=== PATIENT | female | born 1945 | race Caucasian/White ===

== ENCOUNTER → 2021-04-02 10:31 | Outpatient (CLI) | payer OTHER, SELFPAY ==
[2021-04-02 19:10] LABS: Add Manual Diff / Slide Review NO; Basophils Absolute Auto 0 /uL (0-100); Basophils Percent Auto 0.5 % (0-2); Eosinophils Absolute Auto 100 /uL (0-450); Eosinophils Percent Auto 2.1 % (2-4); Hematocrit 34.6 % (36-46); Hemoglobin 11.5 g/dL (12.0-16.0); Lymphocytes Absolute Auto 1300 /uL (1100-4500); Lymphocytes Percent Auto 31.5 % (25-40); Mean Corpuscular HGB Conc 33.2 % (30-36); Mean Corpuscular Hemoglobin 31.9 PG (26-34); Mean Corpuscular Volume 96.1 fL (80-100); Monocytes Absolute Auto 300 /uL (0-900); Neutrophils Absolute Auto 2400 /uL (1500-7000); Neutrophils Percent Auto 57.9 % (50-75); Platelet Count 278 X10^3/uL (150-400); Red Cell Distribution Width 13.7 % (11.6-14.8); White Blood Cell Count 4.1 X10^3/uL (4.5-11.0)
[2021-04-02 19:29] LABS: Alanine Aminotransferase 22 IU/L (<35); Albumin Globulin Ratio 1.4 (1.0-2.8); Alkaline Phosphatase 66 U/L (38-126); Aspartate Aminotransferase 33 IU/L (14-36); BUN Creatinine Ratio 16.5 (6-22); Bilirubin Total 0.1 mg/dL (0.2-1.3); Blood Urea Nitrogen 14 mg/dL (7-17); Calcium 9.5 mg/dL (8.4-10.2); Carbon Dioxide 28 mmol/L (22-32); Chloride 104 mmol/L (98-107); Estimated Glomerular Filt Rate > 60.0 mL/min (>60); Globulin 2.8 g/dL (1.7-4.1); Glucose 89 mg/dL (80-110); HEMOLYSIS < 15 (0-50); Potassium 4.9 mmol/L (3.4-5.1); Sodium 136 mmol/L (137-145); Total Protein 6.8 g/dL (6.3-8.2)
[2021-04-02 19:40] LABS: Rheumatoid Factor < 8.6 IU/mL (<12.0)
[2021-04-02 21:08] LABS: Erythrocyte Sedimentation Rate 12 MM/HR (0-20)
== END ==
PROVIDERS: PCP Family Medicine; Visit Provider Family Medicine
DX: M06.9 Rheumatoid arthritis, unspecified (principal); E03.9 Hypothyroidism, unspecified; E78.00 Pure hypercholesterolemia, unspecified; E78.2 Mixed hyperlipidemia; G40.802 Other epilepsy, not intractable, without status epilepticus; N28.9 Disorder of kidney and ureter, unspecified
CPT/HCPCS: 80053; 84443; 85025; 85651; 86430

== ENCOUNTER → 2021-04-10 11:47 | Outpatient (CLI) | payer OTHER, SELFPAY ==
[2021-04-10 19:43] LABS: Add Manual Diff / Slide Review NO; Basophils Absolute Auto 0 /uL (0-100); Basophils Percent Auto 0.7 % (0-2); Eosinophils Absolute Auto 100 /uL (0-450); Eosinophils Percent Auto 1.8 % (2-4); Hematocrit 34.8 % (36-46); Hemoglobin 11.7 g/dL (12.0-16.0); Lymphocytes Absolute Auto 1300 /uL (1100-4500); Lymphocytes Percent Auto 28.6 % (25-40); Mean Corpuscular HGB Conc 33.6 % (30-36); Mean Corpuscular Hemoglobin 31.9 PG (26-34); Monocytes Absolute Auto 400 /uL (0-900); Monocytes Percent Auto 9.3 % (3-14); Neutrophils Absolute Auto 2700 /uL (1500-7000); Neutrophils Percent Auto 59.6 % (50-75); Platelet Count 288 X10^3/uL (150-400); Red Blood Cell Count 3.66 X10^6/uL (4.0-5.2); Red Cell Distribution Width 13.4 % (11.6-14.8); White Blood Cell Count 4.6 X10^3/uL (4.5-11.0)
[2021-04-10 19:51] LABS: HEMOLYSIS < 15 (0-50); Iron 88 ug/dL (37-170)
[2021-04-10 19:53] LABS: Cholesterol 249 mg/dL (140-199); HDL Cholesterol 104 mg/dL (40-60); LDL Cholesterol Calculated 128 mg/dL (<100); Triglycerides 86 mg/dL (35-150)
[2021-04-10 20:03] LABS: Percent Iron Saturation 37 % (15-50); Total Iron Binding Capacity 235 ug/dL (265-497); Transferrin 214 mg/dL (206-381)
[2021-04-10 20:14] LABS: Free T4, Direct Thyroxine 1.32 ng/dL (0.78-2.19)
[2021-04-10 20:32] LABS: Ferritin 67 ng/mL (11-264)
[2021-04-10 20:46] LABS: Vitamin B12 Reflex MMA if <400 562 pg/mL (239-931)
== END ==
PROVIDERS: Family Medicine; PCP Family Medicine; Visit Provider Family Medicine
DX: D64.9 Anemia, unspecified (principal); E03.9 Hypothyroidism, unspecified; E78.2 Mixed hyperlipidemia
CPT/HCPCS: 80061; 82607; 82728; 83540; 83550; 84439; 84443; 85025

== ENCOUNTER → 2021-05-05 13:09 | Outpatient (CLI) | payer OTHER, SELFPAY ==
--- NOTE | 2021-05-05 13:14 | DI.MRI.S_ITS ---
PROCEDURE: MR LUMBAR SPINE WO CON INDICATIONS: spondylosis of lumbar spine with radiculopathy TECHNIQUE: Noncontrast sagittal T1 spin echo and T2 fast echo, sagittal STIR, axial T1 and T2 fast spin echo through the lumbar spine. In cases with scoliosis, additional coronal T2 fast spin echo may be performed. COMPARISON: None. FINDINGS: Image quality: Excellent. Alignment and Curvature: There is dextroscoliosis of the lumbar spine with a Luz angle of 16 degrees. Bone Marrow: Marrow is of normal overall signal. No acute vertebral body compression fractures. L4 has a Schmorl's node anteriorly. Degenerative endplate changes are noted at the superior endplate of L3, L4, and L5. Anterior osteophytes and disc osteophytes are seen at these levels as well. Spinal Cord: Conus medullaris terminates at the L1 level. Visualized cord demonstrates normal signal and size. Paraspinous Soft Tissues: No paravertebral masses. T11-12: Diffuse disc bulge with no significant foraminal or central canal stenosis. T12-L1: Normal appearance. L1-L2: Diffuse disc bulge with no significant foraminal or central canal stenosis. L2-L3: A diffuse disc bulge with disc osteophytes and facet arthrosis causes moderate bilateral foraminal stenosis and mild central canal stenosis. L3-L4: A diffuse disc bulge with disc osteophytes and facet arthrosis causes minimal right and moderate left foraminal stenosis. The central canal has mild stenosis. The lateral recess on the left is narrowed. L4-L5: A diffuse disc bulge with disc osteophytes and facet arthrosis causes moderate bilateral foraminal stenosis. The central canal has mild stenosis. L5-S1: A diffuse disc bulge and facet arthrosis causes severe right foraminal stenosis. The left foramen has mild stenosis. IMPRESSION: 1. Lumbar spondylosis as above causing multilevel foraminal and central canal stenosis as above, most severe in the right L5-S1 foramina. 2. No acute vertebral body compression fracture. 3. Dextroscoliosis. Dictated by: Kraig Mosqueda M.D. on 05/06/2021 at 8:52 Approved by: Kraig Mosqueda M.D. on 05/06/2021 at 9:00
== END ==
PROVIDERS: PCP Family Medicine; Referring Provider Family Medicine; Visit Provider Family Medicine
DX: M54.16 Radiculopathy, lumbar region (principal); M47.816 Spondylosis without myelopathy or radiculopathy, lumbar region
CPT/HCPCS: 72148

== ENCOUNTER → 2021-05-14 12:19 | Outpatient (CLI) | payer OTHER, SELFPAY ==
[2021-05-14 19:03] LABS: Reticulocyte Count, Percent 0.8 % (1.06-2.63)
== END ==
PROVIDERS: PCP Family Medicine; Visit Provider Family Medicine
DX: D64.9 Anemia, unspecified (principal); E03.9 Hypothyroidism, unspecified
CPT/HCPCS: 85045

== ENCOUNTER → 2021-06-09 10:57 | Outpatient (CLI) | payer OTHER, SELFPAY ==
--- NOTE | 2021-06-09 10:58 | DI.MRI.S_ITS ---
PROCEDURE: MR HIPS BRYAN WO CON INDICATIONS: progressive bilateral hip pain with increasing impairment w TECHNIQUE: Noncontrast coronal T1 spin echo and STIR through the bony pelvis. Coronal and axial T2 fast spin echo with fat saturation, sagittal T1 spin echo, and oblique axial T2 fast spin echo with fat saturation through the hip. COMPARISON: [facility] ([facility]), CR, XR HIP W PEL IF DONE LT 2V, 03/14/2021, 12:39. FINDINGS: Image quality: Excellent. Bones and joints: Moderate to severe bilateral hip joint osteoarthritic changes are seen with near complete loss of joint space, extensive subchondral sclerosis and cyst formation and prominent marginal osteophyte formation. Small to moderate bilateral hip joint effusion is also noted. No definite intra-articular loose body is identified. No intraosseous lesions or fractures. No avascular necrosis of the left femoral head. Geographic area of signal abnormality and subtle deformity involving medial portion of right femoral head weight-bearing portion concerning for developing avascular necrosis in this region. Degenerative disc disease in visualized lower lumbar spine is seen with mild rightward scoliosis of lumbar spine partially visualized on this study. No acute compression fracture. Tendons and ligaments: Mild bilateral gluteus medius and minimus tendinosis near the level greater trochanters are seen, without associated muscle atrophy. The nearby proximal iliotibial band also appears intact. The iliopsoas tendon appears intact, without adjacent bursal fluid collections or evidence for impingement syndrome. The origin of the hamstring tendon is intact at the ischial tuberosity, as well as the associated sacrotuberous ligament. The straight and reflected heads of the rectus femoris muscle origin appear intact, as well as the conjoint tendon. The ligamentum teres appears intact where visualized. Labrum and cartilage: There is complete loss of articulating cartilages in bilateral femoral heads. Suggestion of extensive bilateral hip labral tear is seen with prominent complex appearing perilabral cyst anterior to right hip measures 1.4 x 1.4 x 2.5 cm in size. Soft tissues: Visualized muscles demonstrate normal bulk and internal signal. Quadratus femoris muscle demonstrates no internal edema to suggest ischiofemoral impingement. The proximal sciatic neurovascular bundle appears normal adjacent to the hamstring tendons. No free pelvic fluid. Bladder wall thickness is normal. Genitourinary structures and bowel loops appear normal where visualized. IMPRESSION: 1. Moderate to severe bilateral hip joint osteoarthritis. No fracture or dislocation. Deformity and geographic area of signal abnormality involving medial portion of right femoral head weight-bearing portion concerning for early developing avascular necrosis. No evidence of avascular necrosis of left femoral head. 2. Mild bilateral gluteus medius and minimus tendinosis near greater trochanters. No other muscle or tendon signal abnormality. Moderate bilateral hip joint effusion, no definite intra-articular loose body. 3. Suggestion of extensive bilateral hip labral tear with right-sided perilabral cyst as above. 4. Mild scoliosis and degenerative disc disease in visualized lower lumbar spine as above. No acute compression fracture. Dictated by: Sami Patino M.D. on 06/10/2021 at 9:05 Approved by: Sami Patino M.D. on 06/10/2021 at 9:12
== END ==
PROVIDERS: PCP Naturopath; Referring Provider Family Medicine; Visit Provider Family Medicine
DX: M25.551 Pain in right hip (principal); M25.552 Pain in left hip; M16.0 Bilateral primary osteoarthritis of hip; M25.452 Effusion, left hip; M25.451 Effusion, right hip; M41.9 Scoliosis, unspecified; M51.36 Other intervertebral disc degeneration, lumbar region
CPT/HCPCS: 73721

== ENCOUNTER → 2021-09-13 11:02 | Outpatient (CLI) | payer OTHER, SELFPAY ==
[2021-09-13 19:21] LABS: BUN Creatinine Ratio 24.7 (6-22); Blood Urea Nitrogen 18 mg/dL (7-17); Carbon Dioxide 27 mmol/L (22-32); Chloride 103 mmol/L (98-107); Estimated Glomerular Filt Rate > 60.0 mL/min (>60); Glucose 81 mg/dL (80-110); HEMOLYSIS < 15 (0-50); Potassium 4.3 mmol/L (3.4-5.1); Sodium 138 mmol/L (137-145)
== END ==
PROVIDERS: PCP Family Medicine; Referring Provider Family Medicine; Visit Provider Family Medicine
DX: R79.89 Other specified abnormal findings of blood chemistry (principal)
CPT/HCPCS: 80048

== ENCOUNTER → 2022-01-10 08:54 | Outpatient (CLI) | payer OTHER, SELFPAY ==
[2022-01-10 20:19] LABS: COVID19 - ORCAS (NP or Nasal) Negative (Negative)
== END ==
PROVIDERS: PCP Family Medicine; Visit Provider Family Medicine
DX: Z20.822 Contact with and (suspected) exposure to COVID-19 (principal)
CPT/HCPCS: C9803; U0003

== ENCOUNTER → 2022-02-17 08:51 | Outpatient (CLI) | payer OTHER, SELFPAY ==
[2022-02-17 19:07] LABS: Alanine Aminotransferase 16 IU/L (<35); Albumin Globulin Ratio 1.5 (1.0-2.8); Alkaline Phosphatase 75 U/L (38-126); Aspartate Aminotransferase 28 IU/L (14-36); BUN Creatinine Ratio 20.8 (6-22); Bilirubin Total 0.5 mg/dL (0.2-1.3); Blood Urea Nitrogen 16 mg/dL (7-17); Calcium 9.6 mg/dL (8.4-10.2); Carbon Dioxide 29 mmol/L (22-32); Chloride 104 mmol/L (98-107); Cholesterol 164 mg/dL (140-199); Estimated Glomerular Filt Rate > 60.0 mL/min (>60); Globulin 2.7 g/dL (1.7-4.1); Glucose 89 mg/dL (80-110); HDL Cholesterol 82 mg/dL (40-60); HEMOLYSIS < 15 (0-50); LDL Cholesterol Calculated 69 mg/dL (<100); Potassium 4.6 mmol/L (3.4-5.1); Sodium 136 mmol/L (137-145); Total Protein 6.7 g/dL (6.3-8.2); Triglycerides 67 mg/dL (35-150)
[2022-02-17 19:21] LABS: Free T4, Direct Thyroxine 1.67 ng/dL (0.78-2.19)
[2022-02-17 19:36] LABS: Thyroid Stimulating Hormone 1.95 uIU/mL (0.47-4.68)
== END ==
PROVIDERS: PCP Family Medicine; Visit Provider Family Medicine
DX: E78.5 Hyperlipidemia, unspecified (principal); M25.551 Pain in right hip; M25.552 Pain in left hip; E78.2 Mixed hyperlipidemia; E03.9 Hypothyroidism, unspecified
CPT/HCPCS: 80053; 80061; 84439; 84443

== ENCOUNTER → 2022-02-25 09:30 | Outpatient (CLI) | payer OTHER, SELFPAY ==
[2022-02-25 18:59] LABS: Add Manual Diff / Slide Review NO; Basophils Absolute Auto 0 /uL (0-100); Basophils Percent Auto 0.6 % (0-2); Eosinophils Absolute Auto 100 /uL (0-450); Eosinophils Percent Auto 2.1 % (2-4); Hematocrit 33.7 % (36-46); Hemoglobin 11.2 g/dL (12.0-16.0); Lymphocytes Absolute Auto 1100 /uL (1100-4500); Lymphocytes Percent Auto 25.4 % (25-40); Mean Corpuscular HGB Conc 33.2 % (30-36); Mean Corpuscular Hemoglobin 31.3 PG (26-34); Mean Corpuscular Volume 94.4 fL (80-100); Monocytes Absolute Auto 400 /uL (0-900); Monocytes Percent Auto 8.1 % (3-14); Neutrophils Absolute Auto 2900 /uL (1500-7000); Neutrophils Percent Auto 63.8 % (50-75); Platelet Count 316 X10^3/uL (150-400); Red Blood Cell Count 3.57 X10^6/uL (4.0-5.2); Red Cell Distribution Width 13.2 % (11.6-14.8); White Blood Cell Count 4.5 X10^3/uL (4.5-11.0)
[2022-02-25 19:10] LABS: HEMOLYSIS < 15 (0-50); Iron 93 ug/dL (37-170)
[2022-02-25 19:20] LABS: Percent Iron Saturation 33 % (15-50); Total Iron Binding Capacity 284 ug/dL (265-497); Transferrin 226 mg/dL (206-381)
== END ==
PROVIDERS: PCP Family Medicine; Visit Provider Family Medicine
DX: D64.9 Anemia, unspecified (principal)
CPT/HCPCS: 83540; 83550; 85025

== ENCOUNTER → 2022-04-30 11:59 | Outpatient (CLI) | payer OTHER, SELFPAY ==
[2022-04-30 19:56] LABS: Add Manual Diff / Slide Review NO; Basophils Absolute Auto 0 /uL (0-100); Basophils Percent Auto 0.8 % (0-2); Eosinophils Absolute Auto 100 /uL (0-450); Eosinophils Percent Auto 1.7 % (2-4); Hematocrit 33.3 % (36-46); Hemoglobin 11.4 g/dL (12.0-16.0); Lymphocytes Absolute Auto 1300 /uL (1100-4500); Lymphocytes Percent Auto 29.4 % (25-40); Mean Corpuscular HGB Conc 34.4 % (30-36); Mean Corpuscular Hemoglobin 31.4 PG (26-34); Mean Corpuscular Volume 91.4 fL (80-100); Monocytes Absolute Auto 400 /uL (0-900); Monocytes Percent Auto 8.4 % (3-14); Neutrophils Absolute Auto 2600 /uL (1500-7000); Neutrophils Percent Auto 59.7 % (50-75); Platelet Count 280 X10^3/uL (150-400); Red Blood Cell Count 3.64 X10^6/uL (4.0-5.2); Red Cell Distribution Width 14.2 % (11.6-14.8); White Blood Cell Count 4.4 X10^3/uL (4.5-11.0)
[2022-04-30 19:57] LABS: HEMOLYSIS < 15 (0-50); Iron 91 ug/dL (37-170)
[2022-04-30 20:07] LABS: Percent Iron Saturation 35 % (15-50); Total Iron Binding Capacity 261 ug/dL (265-497); Transferrin 203 mg/dL (206-381)
[2022-04-30 20:45] LABS: Vitamin B12 > 1000 pg/mL (239-931)
== END ==
PROVIDERS: PCP Family Medicine; Visit Provider Family Medicine
DX: D64.9 Anemia, unspecified (principal)
CPT/HCPCS: 82607; 83540; 83550; 85025

== ENCOUNTER → 2022-05-05 10:36 | Outpatient (CLI) | payer OTHER, SELFPAY ==
[2022-05-06 07:12] LABS: Fecal Immunochemical Test Negative (Negative)
== END ==
PROVIDERS: PCP Family Medicine; Visit Provider Family Medicine
DX: D64.9 Anemia, unspecified (principal)
CPT/HCPCS: 82274

== ENCOUNTER → 2022-05-13 10:16 | Outpatient (CLI) | payer OTHER, SELFPAY ==
[2022-05-13 20:21] LABS: TSH w/ Reflex to FT4 2.12 uIU/mL (0.47-4.68)
== END ==
PROVIDERS: PCP Family Medicine; Visit Provider Family Medicine
DX: E03.9 Hypothyroidism, unspecified (principal)
CPT/HCPCS: 84443

== ENCOUNTER → 2022-06-05 07:12 | Outpatient (CLI) | payer OTHER, SELFPAY ==
[2022-06-05 20:11] LABS: COVID19 - ORCAS (NP or Nasal) Negative (Negative)
== END ==
PROVIDERS: PCP Family Medicine; Visit Provider Physician Assistant
DX: Z20.822 Contact with and (suspected) exposure to COVID-19 (principal)
CPT/HCPCS: C9803; U0003

== ENCOUNTER → 2022-09-05 13:13 | Outpatient (CLI) | payer OTHER, SELFPAY ==
--- NOTE | 2022-09-05 13:14 | DI.MRI.S_ITS ---
PROCEDURE: MR KNEE LT WO CON INDICATIONS: fell on to left knee. unstable. TECHNIQUE: Noncontrast sagittal PD fast spin echo and T2 fast spin echo with fat saturation, sagittal 3-D FLASH with fat saturation; coronal T1 spin echo and PD fast spin echo with fat saturation, and axial PD fast spin echo with fat saturation through the knee. COMPARISON: [facility] ([facility]), CR, XR KNEE LT 3V, 09/01/2022, 15:12. FINDINGS: Image quality: Excellent. Menisci: There is suggestion of oblique tear involving posterior horn of medial meniscus extending to inferior articulating surface. No lateral meniscal tear. The meniscal root ligaments appear intact. Cruciate ligaments: The anterior and posterior cruciate ligaments appear intact. Medial structures: The medial collateral ligament appears intact. The posterior oblique ligament, semimembranosus tendon insertions, oblique popliteal ligament, and meniscocapsular junction appear intact. Visualized portions of the pes anserinus tendons appear normal. No abnormal bursal fluid. Lateral structures: The lateral collateral ligament, long and short heads of the biceps femoris tendon appear intact. The popliteus tendon appears normal; the popliteofibular ligament appears intact. Iliotibial band appears normal. Anterior structures: Significant soft tissue edema and swelling along anterior aspect of patella and patella tendon is seen. Distal quadriceps tendon is intact. Markedly thickened proximal patellar tendon at its inferior patellar insertion is seen extending to midportion of patellar tendon. Patellar alignment is normal. No femoral trochlear dysplasia or ventral trochlear prominence. No edema in the infrapatellar fat pad. Bones and cartilage: Patient's known nondisplaced fracture involving inferior portion of patella is seen with significant marrow edema. There is mild marrow edema involving anterior portion of proximal tibia without discrete fracture line. Mild to moderate tricompartmental osteoarthritis and chondromalacia is noted. Joint space: There is small to moderate knee joint fluid. No Hunt's cyst. Normal appearing synovial plicae are incidentally noted. IMPRESSION: 1. Nondisplaced fracture involving inferior portion of patella. Bony contusion involving adjacent anterior aspect of proximal tibia. No other fracture or dislocation. 2. Soft tissue swelling and edema along anterior aspect of patella and patella tendon with tendinosis and low-grade partial-thickness tear involving proximal to midportion of patellar tendon. Quadriceps tendon is intact. 3. Subtle oblique tear involving posterior horn of medial meniscus extending to inferior articulating surface. Lateral meniscus is intact. 4. Cruciate ligaments are intact. 5. Mild to moderate tricompartmental osteoarthritis and chondromalacia more prominent in medial femoral tibial compartment. Small to moderate amount of joint fluid, no gross loose bodies. Dictated by: Sami Patino M.D. on 09/05/2022 at 14:32 Approved by: Sami Patino M.D. on 09/05/2022 at 14:36
== END ==
PROVIDERS: PCP Family Medicine; Referring Provider Family Medicine; Visit Provider Physician Assistant
DX: S82.092A Other fracture of left patella, initial encounter for closed fracture (principal); S76.812A Strain of other specified muscles, fascia and tendons at thigh level, left thigh, initial encounter; S83.242A Other tear of medial meniscus, current injury, left knee, initial encounter; M17.12 Unilateral primary osteoarthritis, left knee; M25.362 Other instability, left knee; M94.262 Chondromalacia, left knee; M79.89 Other specified soft tissue disorders; W19.XXXA Unspecified fall, initial encounter
CPT/HCPCS: 73721

== ENCOUNTER → 2022-11-05 11:00 | Outpatient (CLI) | payer OTHER, SELFPAY ==
[2022-11-05 19:54] LABS: Cholesterol 162 mg/dL (140-199); HDL Cholesterol 95 mg/dL (40-60); LDL Cholesterol Calculated 60 mg/dL (<100); Triglycerides 37 mg/dL (35-150)
[2022-11-05 19:59] LABS: HEMOLYSIS < 15 (0-50); Iron 83 ug/dL (37-170)
[2022-11-05 20:32] LABS: Percent Iron Saturation 32 % (15-50); Total Iron Binding Capacity 263 ug/dL (265-497); Transferrin 229 mg/dL (206-381)
[2022-11-05 20:34] LABS: Free T4, Direct Thyroxine 1.56 ng/dL (0.78-2.19)
[2022-11-05 20:47] LABS: Thyroid Stimulating Hormone 1.96 uIU/mL (0.47-4.68)
[2022-11-05 22:52] LABS: Alanine Aminotransferase 24 IU/L (<35); Albumin 3.9 g/dL (3.5-5.0); Albumin Globulin Ratio 1.4 (1.0-2.8); Alkaline Phosphatase 78 U/L (38-126); Aspartate Aminotransferase 31 IU/L (14-36); BUN Creatinine Ratio 21.6 (6-22); Bilirubin Total 0.4 mg/dL (0.2-1.3); Blood Urea Nitrogen 16 mg/dL (7-17); Calcium 8.7 mg/dL (8.4-10.2); Carbon Dioxide 25 mmol/L (22-32); Chloride 103 mmol/L (98-107); Estimated Glomerular Filt Rate > 60 mL/min (>60); Globulin 2.7 g/dL (1.7-4.1); Glucose 82 mg/dL (80-110); HEMOLYSIS < 15 (0-50); Potassium 4.7 mmol/L (3.4-5.1); Sodium 137 mmol/L (137-145); Total Protein 6.6 g/dL (6.3-8.2)
[2022-11-05 23:24] LABS: Ferritin 53 ng/mL (11-264)
[2022-11-05 23:39] LABS: Vitamin B12 > 1000 pg/mL (239-931)
== END ==
PROVIDERS: PCP Family Medicine
DX: E78.5 Hyperlipidemia, unspecified (principal); D64.9 Anemia, unspecified; E03.9 Hypothyroidism, unspecified; M16.9 Osteoarthritis of hip, unspecified
CPT/HCPCS: 80053; 80061; 82607; 82728; 83540; 83550; 84439; 84443

== ENCOUNTER → 2023-01-03 10:34 | Outpatient (CLI) | payer OTHER, SELFPAY ==
--- NOTE | 2023-01-03 | DI.MG.S_ITS ---
BILATERAL DIGITAL SCREENING MAMMOGRAM 3D/2D WITH CAD: 01/03/2023 CLINICAL: Routine screening. Comparison is made to exams dated: 11/12/2021 mammogram, 10/16/2020 mammogram, 09/06/2019 mammogram, and 09/01/2018 mammogram - Outside facility. Both breasts are heterogeneously dense, which may obscure small masses (category c / 51-75% glandular tissue). Current study was also evaluated with a Computer Aided Detection (CAD) system. No significant masses, calcifications, or other findings are seen in either breast. There has been no significant interval change. IMPRESSION: NEGATIVE There is no mammographic evidence of malignancy. A 1 year screening mammogram is recommended. Based on the Tyrer Cuzick model (a risk assessment model) the patient's lifetime risk is 4.6% and her 10 year risk is 0.0%. According to the ACR, ACS, and NCCN guidelines, an annual breast MRI exam along with mammogram is recommended if the patient's lifetime risk is 20% or greater. This exam was interpreted at Station ID: [id number]. NOTE: For mammograms, a report in lay terms will be sent to the patient. Approximately 15% of breast malignancies will not be visualized mammographically. In the management of a palpable breast mass, a negative mammogram must not discourage biopsy of a clinically suspicious lesion. Electronically Signed By: Anh medina/gonzalo:01/05/2023 13:19:04 letter sent: Normal Exam ACR BI-RADS Category 1: Negative 3341F
== END ==
PROVIDERS: PCP Family Medicine; Referring Provider Family Medicine; Visit Provider Family Medicine
DX: Z12.31 Encounter for screening mammogram for malignant neoplasm of breast (principal)
CPT/HCPCS: 77063; 77067

== ENCOUNTER → 2023-03-09 10:24 | Outpatient (CLI) | payer OTHER, SELFPAY ==
[2023-03-09 20:07] LABS: HEMOLYSIS < 15 (0-50); Iron 128 ug/dL (37-170)
[2023-03-09 20:16] LABS: Percent Iron Saturation 50 % (15-50); Total Iron Binding Capacity 255 ug/dL (265-497); Transferrin 209 mg/dL (206-381)
[2023-03-09 20:40] LABS: Ferritin 58 ng/mL (11-264)
[2023-03-09 20:54] LABS: Vitamin B12 919 pg/mL (239-931)
== END ==
PROVIDERS: PCP Family Medicine; Visit Provider Family Medicine
DX: D64.9 Anemia, unspecified (principal)
CPT/HCPCS: 82607; 82728; 83540; 83550

== ENCOUNTER → 2023-03-23 09:54 | Outpatient (CLI) | payer OTHER, SELFPAY ==
[2023-03-23 20:20] LABS: Add Manual Diff / Slide Review NO; Basophils Absolute Auto 0 /uL (0-100); Basophils Percent Auto 0.6 % (0-2); Eosinophils Absolute Auto 100 /uL (0-450); Eosinophils Percent Auto 2.5 % (2-4); Hematocrit 37.1 % (36-46); Hemoglobin 12.7 g/dL (12.0-16.0); Lymphocytes Absolute Auto 1300 /uL (1100-4500); Mean Corpuscular HGB Conc 34.1 % (30-36); Mean Corpuscular Hemoglobin 32.2 PG (26-34); Mean Corpuscular Volume 94.4 fL (80-100); Monocytes Absolute Auto 400 /uL (0-900); Monocytes Percent Auto 9.1 % (3-14); Neutrophils Absolute Auto 2600 /uL (1500-7000); Neutrophils Percent Auto 58.8 % (50-75); Platelet Count 266 X10^3/uL (150-400); Red Blood Cell Count 3.93 X10^6/uL (4.0-5.2); White Blood Cell Count 4.4 X10^3/uL (4.5-11.0)
[2023-03-23 20:33] LABS: Alanine Aminotransferase 24 IU/L (<35); Albumin 4.1 g/dL (3.5-5.0); Albumin Globulin Ratio 1.6 (1.0-2.8); Alkaline Phosphatase 64 U/L (38-126); Aspartate Aminotransferase 31 IU/L (14-36); Bilirubin Total 0.5 mg/dL (0.2-1.3); Blood Urea Nitrogen 18 mg/dL (7-17); Calcium 8.9 mg/dL (8.4-10.2); Carbon Dioxide 27 mmol/L (22-32); Chloride 104 mmol/L (98-107); Cholesterol 165 mg/dL (140-199); Estimated Glomerular Filt Rate > 60 mL/min (>60); Globulin 2.6 g/dL (1.7-4.1); Glucose 85 mg/dL (80-110); HDL Cholesterol 96 mg/dL (40-60); HEMOLYSIS < 15 (0-50); LDL Cholesterol Calculated 58 mg/dL (<100); Potassium 4.4 mmol/L (3.4-5.1); Sodium 135 mmol/L (137-145); Total Protein 6.7 g/dL (6.3-8.2); Triglycerides 54 mg/dL (35-150)
[2023-03-23 20:53] LABS: TSH w/ Reflex to FT4 1.43 uIU/mL (0.47-4.68)
== END ==
PROVIDERS: PCP Family Medicine; Visit Provider Family Medicine
DX: D64.9 Anemia, unspecified (principal); E03.9 Hypothyroidism, unspecified; E78.2 Mixed hyperlipidemia
CPT/HCPCS: 80053; 80061; 84443; 85025

== ENCOUNTER 2023-05-05 09:40 | Day surgery (SDC) | payer OTHER, SELFPAY ==
[2023-05-05] MEDS: FLEETS ENEMA 1 EACH PR (10:30)
[2023-05-05 10:45] VITALS: BMI 24.1
[2023-05-05 10:56] VITALS: BP 138/69; PULSE 66; RESP 16; TEMP 37; O2SAT 98; BMI 24.1
[2023-05-05] MEDS: LACTATED RINGERS 1,000 ML 200 ML IV (11:15)
--- NOTE | 2023-05-05 11:26 | PM.HP.1 ---
History of Present Illness History of Present Illness Date Patient Seen: 05/05/23 Time Patient Seen: 11:27 Chief complaint: Colonoscopy Narrative: 77-year-old woman with a personal history of colonic polyps here for screening colonoscopy. She had tubular adenomas removed from colonoscopies in 2012 and 7 teen. Last colonoscopy was approximately 5 years ago and normal. No personal or family history of intestinal malignancy. She is having occasional bright red blood per rectum which is painful. No unintentional weight loss nausea vomiting. She has chronic iron-deficiency anemia. [facility] Medical History (Updated 03/12/23 @ 13:02 by Reuben Wilson MD) Anemia Chicken pox Chronic back pain Colon polyps (~1984) Fibroids Hearing loss Herpes History of urinary incontinence Hyperthyroidism (~1972) Measles Osteoarthrosis, hip Osteopenia (~2013) Osteoporosis Surgical History Anesthesia History of cataract removal with insertion of prosthetic lens (~2015) Status post breast biopsy Status post delivery (~1977) Family History Brother Age: 72 Cervical stenosis of spine Mother Cancer Father History of airway aspiration Social History household members: spouse Smoking Status: Former smoker alcohol intake: current Meds Home Medications and Allergies Home Medications Medication Instructions Recorded Confirmed Type cholecalciferol (vitamin D3) 50 50 mcg PO DAILY 03/04/21 05/05/23 History mcg (2,000 unit) capsule mecobalamin (vitamin B12) 1,000 1,000 mcg sublingual DAILY 03/04/21 05/05/23 History mcg disintegrating tablet,sublingual atorvastatin 20 mg tablet (Lipitor) 20 mg PO DAILY 11/15/21 05/05/23 History multivitamin (Daily Multi-Vitamin 1 tab PO DAILY 11/15/21 11/11/22 History tablet) ferrous gluconate 324 mg (37.5 mg 324 mg PO BID #60 tabs 02/26/22 05/05/23 Rx iron) tablet aspirin 81 mg tablet,delayed 81 mg PO .COMPLEX 11/11/22 05/05/23 History release (Adult Low Dose Aspirin) melatonin 1 mg/mL oral liquid 2 mg PO BEDTIME PRN 11/11/22 11/11/22 History peg 3350-electrolytes 236 240 ml PO Q10M #4,000 mL 03/30/23 Rx gram-22.74 gram-6.74 gram-5.86 gram solution (Golytely) fluoxetine 10 mg tablet 10 mg PO DAILY #90 tabs 04/06/23 05/05/23 Rx fluoxetine 20 mg tablet 20 mg PO DAILY #90 tabs 04/06/23 05/05/23 Rx levothyroxine 75 mcg tablet 75 mcg PO DAILY #90 tabs 04/06/23 05/05/23 Rx Allergies Allergy/AdvReac Type Severity Reaction Status Date / Time cantaloupe Allergy Severe Anaphylaxis, Verified 05/05/23 10:24 rash melon [MELON] Allergy Severe short of Verified 05/05/23 10:24 breath anaphylaxis, cantelope-epipen cassava Allergy Severe Anaphylaxis Uncoded 09/26/22 09:34 Exam Vital Signs (past 8 hours): - 05/05/23 10:56 Temperature 98.6 F Pulse Rate 66 Respiratory Rate 16 Blood Pressure 138/69 Pulse Oximetry 98 Oxygen Delivery Method Room Air Oxygen Delivery Method Room Air Narrative Exam Narrative: General adult woman alert oriented no acute distress Abdomen soft nontender nondistended Extremities warm well perfused Assessment & Plan Assessment & Plan narrative: The patient requires colorectal screening and colonoscopy is recommended. Technical details were discussed. Risks, benefits, alternatives explained. Risks including but not limited to myocardial infarction, aspiration, bleeding, pain, missed lesion, incomplete examination, need for further radiographic studies, colonic perforation, and need for major abdominal surgery were discussed. All questions were answered to their satisfaction, and they are in agreement with this plan.
--- NOTE | 2023-05-05 11:28 | PM.OP.COLON ---
Operative Date/Time/Diagnoses Date of procedure: 05/05/23 Time of procedure: 11:28 Pre-op diagnosis: Colorectal screening Personal history of colonic polyps. Rectal bleeding Anemia Post-op diagnosis: same Procedure & Clinicians Study performed: Colonoscopy Same procedure as scheduled: Yes Indications: 77-year-old woman personal history of colonic polyps with intermittent painful rectal bleeding and a diagnosis of anemia. Surgeon: Gilbert Benito Procedure Notes Procedure in detail: The history and physical was performed/updated and the patient is ASA class is 2. The procedure was discussed in detail with the patient. Potential risks complications including infection, bleeding, missed diagnosis, perforation, need for surgery, and were explained. Their questions were answered and informed consent was obtained. Patient was brought to the procedure room and placed standard monitoring equipment. The patient's vital signs were monitored continuously throughout the entire procedure. Prior to starting time-out was performed. The patient was placed in the left lateral recumbent position. Procedural sedation was administered by anesthesia. Examination began with a thorough inspection of the perianal area there was no evidence of fissures, fistulae, external hemorrhoids or cutaneous malignancy. The colonoscopy scope was then placed into the anal canal and was advanced to the cecum, which was identified by the ileocecal valve, the appendiceal orifice and the confluence of the taenia. The scope was then slowly withdrawn examining colon thoroughly in all directions, irrigating it of any residual stool. Sigmoid colon notable for diverticulosis. No masses or polyps identified. Internal hemorrhoids on retroflexion within the rectum. The patient tolerated the procedure well. They will be discharged once criteria are met. The prep was of good/excellent quality. The withdrawl time was 7 minutes. Specimen(s): none sent Complications: none Impression: Internal hemorrhoids. Otherwise normal colonoscopy Post-procedure Plan for aftercare: No further colonoscopy necessary Disposition: same day surgery
[2023-05-05 11:48] VITALS: BP 100/59; PULSE 57; RESP 12; TEMP 36.4; O2SAT 92
[2023-05-05 11:53] VITALS: BP 109/59; PULSE 58; RESP 9; O2SAT 98
[2023-05-05 11:58] VITALS: BP 124/63; PULSE 57; RESP 16; TEMP 36.4; O2SAT 96
[2023-05-05 12:01] VITALS: BP 124/66; PULSE 56; RESP 16; O2SAT 96
== END 2023-05-05 12:29 | disposition home or self-care (01) ==
PROVIDERS: PCP Family Medicine; Referring Provider Surgery; Visit Provider Surgery
PROC: 0DJD8ZZ Inspection of Lower Intestinal Tract, Via Natural or Artificial Opening Endoscopic (ICD-10-PCS; CPT 45378; principal; 2023-05-05 11:30)
DX: K62.5 Hemorrhage of anus and rectum (principal); D50.9 Iron deficiency anemia, unspecified; Z86.010 Personal history of colon polyps; K64.8 Other hemorrhoids; K57.30 Diverticulosis of large intestine without perforation or abscess without bleeding; M81.0 Age-related osteoporosis without current pathological fracture; Z78.0 Asymptomatic menopausal state; M85.89 Other specified disorders of bone density and structure, multiple sites
CPT/HCPCS: 45378; 77080; 77081; J2704; J3010

== ENCOUNTER → 2023-05-05 13:22 | Outpatient (CLI) | payer OTHER, SELFPAY ==
--- NOTE | 2023-05-05 13:41 | DI.DEXA.S_ITS ---
Bone Density Report Name: SONDRA MERRILL Age: 77 Sex: Female Ethnicity: White Date of : 1945 Indication: postmenopausal; screening for osteoporosis; Referring Provider: MARAH GAN Study: Bone densitometry was performed. Exam Date: May 05, 2023 Accession number: [id number] Bone Density: Region BMD T-score Z-score Classification AP Spine(L1-L4) 0.815 -2.1 0.4 Osteopenia Total Forearm (Left) 0.496 -1.5 1.2 Osteopenia 1/3 Forearm (Left) 0.631 -1.0 1.8 Normal UD Forearm (Left) 0.307 -2.3 -0.3 Osteopenia World Health Organization criteria for BMD impression classify patients as: Normal (T-score at or above -1.0), Osteopenia (T-score between -1.0 and -2.5), or Osteoporosis (T-score at or below -2.5). Impression: The patient has low bone mass, based on the Total Spine T-score. Discussion: BONE DENSITY IS LOW AT ONE OR MORE SKELETAL SITES. This patient's lowest T-score is low at one or more skeletal sites. It meets the World Health Organization's (WHO) criteria for ?low bone mass? (T-score between -1.0 and -2.5). The patient's 10-year risk of fracture as calculated by FRAX is less than the threshold where pharmacological therapy is recommended by the National Osteoporosis Foundation (NOF). However, all treatment decisions require clinical judgment and consideration of individual patient factors, including patient preferences, comorbidities, previous drug use, risk factors not captured in the FRAX model (e.g., frailty, falls, vitamin D deficiency, increased bone turnover, interval significant decline in bone density) and possible under or overestimation of fracture risk by FRAX. The patient should follow a healthful lifestyle (good nutrition with adequate calcium and vitamin D, and appropriate weight-bearing exercise). Follow-Up: Consider repeating this study in 2 to 3 years to reassess this patient's status, or sooner if there is some new clinical indication. Reported by: EDUARDO MONTES DE OCA M.D. on 05/05/2023 1:58:00 PM.
== END ==
PROVIDERS: PCP Family Medicine; Referring Provider Family Medicine; Visit Provider Family Medicine
DX: M81.0 Age-related osteoporosis without current pathological fracture (principal); Z78.0 Asymptomatic menopausal state; M85.89 Other specified disorders of bone density and structure, multiple sites
CPT/HCPCS: 77080; 77081

== ENCOUNTER → 2023-06-03 09:48 | Outpatient (CLI) | payer OTHER, SELFPAY ==
[2023-06-03 20:41] LABS: Alanine Aminotransferase 21 IU/L (<35); Albumin 3.8 g/dL (3.5-5.0); Albumin Globulin Ratio 1.5 (1.0-2.8); Alkaline Phosphatase 63 U/L (38-126); Aspartate Aminotransferase 28 IU/L (14-36); BUN Creatinine Ratio 22.9 (6-22); Bilirubin Total 0.6 mg/dL (0.2-1.3); Bilirubin Unconjugated 0.4 mg/dL (0.0-1.1); Blood Urea Nitrogen 19 mg/dL (7-17); Calcium 8.8 mg/dL (8.4-10.2); Carbon Dioxide 27 mmol/L (22-32); Chloride 104 mmol/L (98-107); Estimated Glomerular Filt Rate > 60 mL/min (>60); Globulin 2.6 g/dL (1.7-4.1); Glucose 65 mg/dL (80-110); HEMOLYSIS < 15 (0-50); Potassium 4.9 mmol/L (3.4-5.1); Sodium 137 mmol/L (137-145); Total Protein 6.4 g/dL (6.3-8.2)
== END ==
PROVIDERS: PCP Family Medicine; Visit Provider Family Medicine
DX: E78.2 Mixed hyperlipidemia (principal); I10 Essential (primary) hypertension; Z86.010 Personal history of colon polyps
CPT/HCPCS: 80048; 80076; 84100

== ENCOUNTER → 2023-10-13 10:18 | Outpatient (CLI) | payer OTHER, SELFPAY ==
[2023-10-13 13:41] LABS: Albumin 4.1 g/dL (3.5-5.0); BUN Creatinine Ratio 23.2 (6-22); Blood Urea Nitrogen 19 mg/dL (7-17); Calcium 9.2 mg/dL (8.4-10.2); Carbon Dioxide 25 mmol/L (22-32); Chloride 103 mmol/L (98-107); Estimated Glomerular Filt Rate > 60 mL/min (>60); Glucose 84 mg/dL (80-110); HEMOLYSIS < 15 (0-50); Potassium 4.6 mmol/L (3.4-5.1); Sodium 134 mmol/L (137-145)
[2023-10-13 16:28] LABS: Vitamin D 25 Hydroxy (D3) 50.7 ng/mL (30.0-100.0)
[2023-10-15 08:13] LABS: Parathyroid Hormone Int 41 pg/mL (15-65)
[2023-10-18 16:37] LABS: C-Telopeptide, Serum 323 pg/mL (.)
== END ==
PROVIDERS: PCP Family Medicine; Referring Provider Internal Medicine Endocrinology, Diabetes & Metabolism; Visit Provider Internal Medicine Endocrinology, Diabetes & Metabolism
DX: E55.9 Vitamin D deficiency, unspecified (principal); M81.0 Age-related osteoporosis without current pathological fracture
CPT/HCPCS: 36415; 80069; 82306; 82523; 83970

== ENCOUNTER → 2024-02-06 10:46 | Outpatient (CLI) | payer OTHER, SELFPAY ==
--- NOTE | 2024-02-06 10:47 | DI.MG.S_ITS ---
BILATERAL DIGITAL SCREENING MAMMOGRAM 3D/2D WITH CAD: 02/06/2024 CLINICAL: Routine screening. Comparison is made to exams dated: 01/03/2023 mammogram - [facility], 11/12/2021 mammogram, and 10/16/2020 mammogram - Outside facility. Both breasts are heterogeneously dense, which may obscure small masses (category c / 51-75% glandular tissue). Current study was also evaluated with a Computer Aided Detection (CAD) system. There are benign post operative findings in both breasts. No significant masses, calcifications, or other findings are seen in either breast. There has been no significant interval change. IMPRESSION: BENIGN There is no mammographic evidence of malignancy. A 1 year screening mammogram is recommended. Based on the Tyrer Cuzick model (a risk assessment model) the patient's lifetime risk is 4.1% and her 10 year risk is 0.0%. According to the ACR, ACS, and NCCN guidelines, an annual breast MRI exam along with mammogram is recommended if the patient's lifetime risk is 20% or greater. This exam was interpreted at Station ID: [id number]. NOTE: For mammograms, a report in lay terms will be sent to the patient. Approximately 15% of breast malignancies will not be visualized mammographically. In the management of a palpable breast mass, a negative mammogram must not discourage biopsy of a clinically suspicious lesion. Electronically Signed By: Dina munoz/gonzalo:02/08/2024 15:27:28 letter sent: Normal Exam ACR BI-RADS Category 2: Benign Finding(s) 3342F
== END ==
LOC: MAMMO 10:47
PROVIDERS: PCP Family Medicine; Referring Provider Family Medicine; Visit Provider Family Medicine
DX: Z12.31 Encounter for screening mammogram for malignant neoplasm of breast (principal); R92.333 Mammographic heterogeneous density, bilateral breasts
CPT/HCPCS: 77063; 77067

== ENCOUNTER → 2024-02-24 08:59 | Outpatient (CLI) | payer OTHER, SELFPAY ==
[2024-02-24 21:01] LABS: Add Manual Diff / Slide Review NO; Basophils Absolute Auto 0 /uL (0-100); Basophils Percent Auto 0.4 % (0-2); Eosinophils Absolute Auto 100 /uL (0-450); Eosinophils Percent Auto 2.6 % (2-4); Hematocrit 35.7 % (36-46); Hemoglobin 12.1 g/dL (12.0-16.0); Lymphocytes Absolute Auto 1200 /uL (1100-4500); Lymphocytes Percent Auto 26.6 % (25-40); Mean Corpuscular Hemoglobin 32.7 PG (26-34); Monocytes Absolute Auto 500 /uL (0-900); Monocytes Percent Auto 10.7 % (3-14); Neutrophils Absolute Auto 2800 /uL (1500-7000); Neutrophils Percent Auto 59.7 % (50-75); Platelet Count 236 X10^3/uL (150-400); Red Blood Cell Count 3.72 X10^6/uL (4.0-5.2); Red Cell Distribution Width 13.3 % (11.6-14.8); White Blood Cell Count 4.6 X10^3/uL (4.5-11.0)
[2024-02-24 21:08] LABS: Cholesterol 165 mg/dL (140-199); HDL Cholesterol 98 mg/dL (40-60); LDL Cholesterol Calculated 57 mg/dL (<100); Triglycerides 48 mg/dL (35-150)
[2024-02-24 21:38] LABS: TSH w/ Reflex to FT4 2.72 uIU/mL (0.47-4.68)
== END ==
PROVIDERS: PCP Family Medicine; Visit Provider Family Medicine
DX: I10 Essential (primary) hypertension (principal); I25.10 Atherosclerotic heart disease of native coronary artery without angina pectoris; F32.9 Major depressive disorder, single episode, unspecified; E03.9 Hypothyroidism, unspecified; E78.2 Mixed hyperlipidemia
CPT/HCPCS: 80061; 84443; 85025

== ENCOUNTER → 2024-06-01 15:41 | Outpatient (CLI) | payer OTHER, SELFPAY ==
--- NOTE | 2024-06-01 15:42 | DI.US.S_ITS ---
PROCEDURE: US PELVIC COMPLETE INDICATIONS: Abnormal MRI TECHNIQUE: Real-time scanning was performed of the pelvic organs, with image documentation. Additional endovaginal scanning was necessary due to incomplete visualization of the adnexal and endometrial structures by transabdominal scanning. COMPARISON: No relevant comparison at time of dictation. FINDINGS: Uterus: Uterus is retroverted and normal in size at 5.2 x 3.1 x 3.6 cm. The myometrium is heterogeneous. Endometrium is obscured by a calcified fibroid. The fibroid appears intramural, but is poorly demarcated due to the presence of posterior attenuation. Margins of the fibroid measure approximately 2.6 x 2.6 x 2.3 cm. Ovaries: The right ovary measures 1.4 x 2.1 x 1.4 cm, with a calculated ovarian volume of 2.2 cc. The left ovary measures 0.8 x 1.1 x 0.8 cm, with a calculated ovarian volume of 0.4 cc. Simple appearing right ovarian cyst measuring 1.2 x 1.1 x 1.1 cm. Other: No pathologic free abdominal or pelvic fluid. IMPRESSION: Approximate 2.6 cm uterine fibroid obscuring the endometrium. Simple appearing right ovarian cyst measuring 1.2 cm. O-RADS 2. We strive to produce accurate, complete, and clear reports of imaging services. To assist us in improving patient care, this report was composed using standard report templates and voice recognition software. Therefore, it may contain abnormal punctuation, insertions and/or omissions. Occasional wrong-word or sound-alike substitutions may occur. Though we review the report and make efforts to correct it, we do recommend that the report be read carefully in proper context to recognize any text inaccuracies. Dictated by: Tomas Mendez M.D. on 06/03/2024 at 8:29 Approved by: Tomas Mendez M.D. on 06/03/2024 at 8:32
== END ==
PROVIDERS: PCP Family Medicine; Referring Provider Family Medicine; Visit Provider Family Medicine
DX: D25.9 Leiomyoma of uterus, unspecified (principal); N83.201 Unspecified ovarian cyst, right side; R93.89 Abnormal findings on diagnostic imaging of other specified body structures
CPT/HCPCS: 76856

== ENCOUNTER → 2024-10-19 09:08 | Outpatient (CLI) | payer OTHER, SELFPAY ==
[2024-10-19 20:26] LABS: Add Manual Diff / Slide Review NO; Basophils Absolute Auto 0 /uL (0-100); Basophils Percent Auto 0.6 % (0-2); Eosinophils Absolute Auto 100 /uL (0-450); Eosinophils Percent Auto 2.3 % (2-4); Hematocrit 36.5 % (36-46); Hemoglobin 12.2 g/dL (12.0-16.0); Lymphocytes Absolute Auto 1500 /uL (1100-4500); Lymphocytes Percent Auto 29.8 % (25-40); Mean Corpuscular HGB Conc 33.3 % (30-36); Mean Corpuscular Hemoglobin 31.7 PG (26-34); Monocytes Absolute Auto 400 /uL (0-900); Monocytes Percent Auto 7.1 % (3-14); Neutrophils Absolute Auto 3000 /uL (1500-7000); Neutrophils Percent Auto 60.2 % (50-75); Platelet Count 269 X10^3/uL (150-400); Red Blood Cell Count 3.85 X10^6/uL (4.0-5.2); Red Cell Distribution Width 13.7 % (11.6-14.8)
[2024-10-19 20:40] LABS: Alanine Aminotransferase 24 IU/L (<35); Albumin 3.8 g/dL (3.5-5.0); Albumin Globulin Ratio 1.4 (1.0-2.8); Alkaline Phosphatase 55 U/L (38-126); Aspartate Aminotransferase 35 IU/L (14-36); BUN Creatinine Ratio 26.7 (6-22); Bilirubin Total 0.5 mg/dL (0.2-1.3); Blood Urea Nitrogen 20 mg/dL (7-17); Calcium 9.3 mg/dL (8.4-10.2); Carbon Dioxide 26 mmol/L (22-32); Chloride 104 mmol/L (98-107); Estimated Glomerular Filt Rate > 60 mL/min (>60); Globulin 2.8 g/dL (1.7-4.1); Glucose 84 mg/dL (80-110); HEMOLYSIS < 15 (0-50); Potassium 4.6 mmol/L (3.4-5.1); Sodium 133 mmol/L (137-145); Total Protein 6.6 g/dL (6.3-8.2)
[2024-10-19 20:43] LABS: Cholesterol 169 mg/dL (140-199); HDL Cholesterol 87 mg/dL (40-60); LDL Cholesterol Calculated 70 mg/dL (<100); Magnesium 1.8 mg/dL (1.6-2.3); Triglycerides 62 mg/dL (35-150)
[2024-10-19 20:58] LABS: Vitamin D 25 Hydroxy (D3) 48.5 ng/mL (30.0-100.0)
[2024-10-19 21:14] LABS: TSH w/ Reflex to FT4 1.35 uIU/mL (0.47-4.68)
[2024-10-21 05:14] LABS: Parathyroid Hormone Int 43 pg/mL (15-65)
== END ==
PROVIDERS: PCP Family Medicine; Visit Provider Family Medicine
DX: R05.3 Chronic cough (principal); I10 Essential (primary) hypertension; I25.10 Atherosclerotic heart disease of native coronary artery without angina pectoris; D64.9 Anemia, unspecified; E78.2 Mixed hyperlipidemia; E03.9 Hypothyroidism, unspecified; M81.0 Age-related osteoporosis without current pathological fracture; E55.9 Vitamin D deficiency, unspecified
CPT/HCPCS: 80053; 80061; 82306; 82523; 83735; 83970; 84080; 84443; 85025

== ENCOUNTER → 2024-11-14 10:43 | Outpatient (CLI) | payer OTHER, SELFPAY ==
[2024-11-14 19:47] LABS: BUN Creatinine Ratio 24.2 (6-22); Blood Urea Nitrogen 23 mg/dL (7-17); Calcium 9.1 mg/dL (8.4-10.2); Carbon Dioxide 29 mmol/L (22-32); Chloride 104 mmol/L (98-107); Estimated Glomerular Filt Rate > 60 mL/min (>60); Glucose 84 mg/dL (80-110); HEMOLYSIS < 15 (0-50); Potassium 4.3 mmol/L (3.4-5.1); Sodium 135 mmol/L (137-145)
== END ==
PROVIDERS: PCP Family Medicine; Visit Provider Family Medicine
DX: E87.1 Hypo-osmolality and hyponatremia (principal)
CPT/HCPCS: 80048

== ENCOUNTER → 2025-02-28 09:27 | Outpatient (CLI) | payer OTHER, SELFPAY ==
[2025-02-28 19:52] LABS: Add Manual Diff / Slide Review NO; Basophils Absolute Auto 0 /uL (0-100); Basophils Percent Auto 0.5 % (0-2); Eosinophils Absolute Auto 100 /uL (0-450); Eosinophils Percent Auto 1.9 % (2-4); Hematocrit 36.2 % (36-46); Hemoglobin 12.1 g/dL (12.0-16.0); Lymphocytes Absolute Auto 1300 /uL (1100-4500); Lymphocytes Percent Auto 29.7 % (25-40); Mean Corpuscular HGB Conc 33.4 % (30-36); Mean Corpuscular Hemoglobin 31.8 PG (26-34); Monocytes Absolute Auto 400 /uL (0-900); Monocytes Percent Auto 8.5 % (3-14); Neutrophils Absolute Auto 2600 /uL (1500-7000); Neutrophils Percent Auto 59.4 % (50-75); Platelet Count 234 X10^3/uL (150-400); Red Blood Cell Count 3.81 X10^6/uL (4.0-5.2); Red Cell Distribution Width 13.8 % (11.6-14.8); White Blood Cell Count 4.3 X10^3/uL (4.5-11.0)
[2025-02-28 20:05] LABS: BUN Creatinine Ratio 23.8 (6-22); Blood Urea Nitrogen 19 mg/dL (7-17); Calcium 9.3 mg/dL (8.4-10.2); Carbon Dioxide 26 mmol/L (22-32); Chloride 105 mmol/L (98-107); Cholesterol 196 mg/dL (140-199); Estimated Glomerular Filt Rate > 60 mL/min (>60); Glucose 87 mg/dL (80-110); HDL Cholesterol 98 mg/dL (40-60); HEMOLYSIS < 15 (0-50); LDL Cholesterol Calculated 87 mg/dL (<100); Potassium 5.1 mmol/L (3.4-5.1); Sodium 137 mmol/L (137-145); Triglycerides 56 mg/dL (35-150)
[2025-02-28 20:45] LABS: TSH w/ Reflex to FT4 1.72 uIU/mL (0.47-4.68)
== END ==
PROVIDERS: PCP Family Medicine; Visit Provider Family Medicine
DX: D64.9 Anemia, unspecified (principal); I25.10 Atherosclerotic heart disease of native coronary artery without angina pectoris; K21.9 Gastro-esophageal reflux disease without esophagitis; I10 Essential (primary) hypertension; E03.9 Hypothyroidism, unspecified; S32.040S Wedge compression fracture of fourth lumbar vertebra, sequela; E78.2 Mixed hyperlipidemia
CPT/HCPCS: 80048; 80061; 84443; 85025

== ENCOUNTER → 2025-04-10 09:53 | Outpatient (CLI) | payer OTHER, SELFPAY ==
--- NOTE | 2025-04-10 09:54 | DI.NM.S_ITS ---
PROCEDURE: NM EXERCISE TREADMILL NON NUC COMPARISON: None. INDICATIONS: Elevated Agatston score, SOB FINDINGS: Patient exercised per the standard Krystian protocol. Total exercise time was 7 minutes and 18 seconds. Test was terminated secondary to fatigue. Maximal heart rate attained is 155 bpm which is 110% of max predicted heart rate. Maximum blood pressure was 180/92[place] [address]. RENAE -48%. 10.1 METS. No ischemic changes noted. No arrhythmias present. Normal heart rate and blood pressure response to exercise. IMPRESSION: 1. Negative exercise treadmill stress test for ischemia. 2. Above average exercise tolerance. Dictated by: Morgan Patino M.D. on 04/10/2025 at 17:06 Approved by: Morgan Patino M.D. on 04/10/2025 at 17:07
--- NOTE | 2025-04-10 09:54 | DI.ECHO.S_ITS ---
[facility] : : [id number] : : [place] : : [id number] : : Phone: [phone] Echocardiogram Report + + :Name: SONDRA MERRILL Study Date: 04/10/2025 Height: 67 in : :[facility] ReadingLocation: Weight: 150 lb : : Gender: Female BSA: 1.8 m2 : :: 1945 Age: 79 yrs BP: 141/73 mmHg: :Reason For Study: Dyspnea, CAD : :Ordering Physician: MALIK, : :MARAH Performed By: Miah Maxwell : :Referring: MARAH GAN : + + Interpretation Summary Normal left ventricle size with ejection fraction 60-65%. Moderate to severe aortic regurgitation. Mild mitral regurgitation. Procedure: A two-dimensional transthoracic echocardiogram with color flow and Doppler was performed. The study quality was technically adequate. There is no prior echocardiogram noted for this patient. The patient was in normal sinus rhythm during the exam. Left Ventricle: The left ventricle is normal in size and wall thickness. The ejection fraction is estimated to be 60-65%. There are no focal wall motion abnormalities. Diastolic function could not be accurately assessed due to confounding valvular disease. Right Ventricle: The right ventricle is normal in size and function. Atria: The left atrial size is normal. Right atrial size is normal. There is no Doppler evidence for an interatrial shunt. Mitral Valve: The mitral valve leaflets appear to open well. The mitral valve is grossly normal. There is no mitral valve stenosis. There is mild mitral regurgitation. Aortic Valve: The aortic valve is trileaflet. The aortic valve opens well. There is no aortic valve stenosis. There is moderate to severe aortic regurgitation. Tricuspid Valve: The tricuspid valve leaflets are thin and pliable. There is trace tricuspid regurgitation. The right ventricular systolic pressure is estimated to be at least 30 mmHg based on an estimated right atrial pressure of 8 mm Hg. Pulmonic Valve: The pulmonic valve is not well seen, but is grossly normal. There is a trace or physiologic amount of pulmonic regurgitation. Great Vessels: The aortic root is normal size. The ascending aorta is normal in size. The aortic arch is normal in size. The pulmonary is not well visualized. The IVC is dilated (diameter is greater than 2.1 cm) yet it collapses greater than 50% with a sniff. This suggests a right atrial pressure of 8 mm Hg. Pericardium/ Pleura Trivial pericardial effusion noted near the right atrium and right ventricle. MMode/2D Measurements & Calculations LVIDd: 5.0 cm LVOT diam: 1.9 cm LVIDs: 3.2 cm Ao root diam: 3.1 cm FS: 36.3 % asc Aorta Diam: 3.1 cm IVSd: 0.69 cm Ao Arch Diam (Prox Trans): 2.4 cm LVPWd: 0.66 cm LV bojorquez. diameter/BSA (cm/m^2): 2.8 LV sys. diameter/BSA (cm/m^2): 1.8 LA A2 area: 17.6 cm2 RA long axis: 4.9 cm LA A4 area: 16.9 cm2 RA area: 15.3 cm2 LA length (vol): 5.2 cm RA vol: 40.2 ml LA vol: 48.5 ml RA : 22.5 ml/m2 LA vol index: 27.1 ml/m2 IVC diam: 2.3 cm RVD1 (basal): 2.6 cm RVD2 (mid): 1.8 cm TAPSE: 2.2 cm Doppler Measurements & Calculations Ao V2 max: 134.6 cm/sec LVOT Max Adelfo: 112.8 cm/sec Ao V2 mean: 84.8 cm/sec LV V1 max P.1 mmHg Ao max P.2 mmHg LV V1 VTI: 26.8 cm Ao mean P.4 mmHg VIC(I,D): 2.6 cm2 Ao V2 VTI: 30.0 cm VIC(V,D): 2.4 cm2 sev ratio: 0.89 VIC indexed to BSA (cm^2/m^2): 1.4 AI P1/2t: 454.3 msec AI dec slope: 292.8 cm/sec2 MV E max adelfo: 86.6 cm/sec TR max adelfo: 233.9 cm/sec MV A max adelfo: 98.2 cm/sec TR max P.9 mmHg MV E/A: 0.88 PA V2 max: 101.0 cm/sec Med Peak E' Adelfo: 7.1 cm/sec PA V2 mean: 71.3 cm/sec E/E' med: 12.1 PA mean P.3 mmHg Lat Peak E' Adelfo: 8.9 cm/sec PA pr(Accel): 25.9 mmHg E/E' lat: 9.7 E/e' average: 10.9 MV dec time: 0.20 sec SV(LVOT): 77.8 ml Electronically signed by: Patty Song on Reading Physician:04/10/2025 11:51 AM
== END ==
LOC: ECHO 09:54
PROVIDERS: PCP Family Medicine; Referring Provider Family Medicine; Visit Provider Family Medicine
DX: I08.0 Rheumatic disorders of both mitral and aortic valves (principal); I25.10 Atherosclerotic heart disease of native coronary artery without angina pectoris; R06.09 Other forms of dyspnea
CPT/HCPCS: 93017; 93306

== ENCOUNTER → 2025-04-11 09:30 | Outpatient (CLI) | payer OTHER, SELFPAY ==
[2025-04-11 19:16] LABS: Cholesterol 162 mg/dL (140-199); HDL Cholesterol 97 mg/dL (40-60); LDL Cholesterol Calculated 54 mg/dL (<100); Triglycerides 57 mg/dL (35-150)
== END ==
LOC: LAB 09:30
PROVIDERS: PCP Family Medicine; Visit Provider Family Medicine
DX: E78.2 Mixed hyperlipidemia (principal)
CPT/HCPCS: 80061

== ENCOUNTER → 2025-06-07 10:52 | Outpatient (CLI) | payer OTHER, SELFPAY ==
[2025-06-07 20:01] LABS: Follicle Stimulating Hormone 55.8 mIU/mL
== END ==
PROVIDERS: PCP Family Medicine; Visit Provider Family Medicine
DX: R23.2 Flushing (principal)
CPT/HCPCS: 83001; 83002

== ENCOUNTER → 2025-09-18 08:28 | Outpatient (CLI) | payer OTHER, SELFPAY ==
[2025-09-18 18:51] LABS: Add Manual Diff / Slide Review NO; Hematocrit 33.5 % (36-46); Hemoglobin 11.5 g/dL (12.0-16.0); Lymphocytes Absolute Auto 1200 /uL (1100-4500); Mean Corpuscular HGB Conc 34.3 % (30-36); Mean Corpuscular Hemoglobin 32.4 PG (26-34); Mean Corpuscular Volume 94.5 fL (80-100); Platelet Count 227 X10^3/uL (150-400)
[2025-09-18 19:18] LABS: Cholesterol 141 mg/dL (140-199); HDL Cholesterol 100 mg/dL (40-60); Triglycerides 45 mg/dL (35-150)
[2025-09-18 20:08] LABS: Vitamin B12 671 pg/mL (239-931)
== END ==
PROVIDERS: PCP Family Medicine; Visit Provider Family Medicine
DX: D64.9 Anemia, unspecified (principal); I25.10 Atherosclerotic heart disease of native coronary artery without angina pectoris; E78.2 Mixed hyperlipidemia
CPT/HCPCS: 80061; 82607; 85025